=== PATIENT | female | born 1950 | race Hispanic/Latino ===

== ENCOUNTER 2017-06-16 14:35 | Inpatient (IN) | payer MEDICARE, BC ==
[2017-06-16 14:36] VITALS: BMI 56.5
--- NOTE | 2017-06-16 15:52 | RAD ---
HISTORY: SOB COMPARISON: 04/28/2013 FINDINGS: LUNGS: No active pulmonary disease. PLEURA: No significant pleural effusion identified, no pneumothorax apparent. CARDIOVASCULAR: Mild cardiomegaly and mild vascular congestion OSSEOUS STRUCTURES: No significant abnormalities. VISUALIZED UPPER ABDOMEN: Normal. OTHER FINDINGS: None. IMPRESSION: Mild cardiomegaly and mild vascular congestion
--- NOTE | 2017-06-16 15:56 | ED PDOC ---
Arrival/HPI - General Chief Complaint: Abdominal Pain Time Seen by Provider: 06/16/17 14:41 Historian: Patient - History of Present Illness Narrative History of Present Illness (Text): 06/16/17 15:40 67yo female with PMHx of Atrial fibrillation, lymphedema/wound who was referred to ED by Dr. Robledo for worsening RAWLS and abdominal distention for few weeks now. Patient also report b/l leg swelling. States she vomited yesterday, but was able to tolerate food today. she denies abdominal pain, nausea, vomiting, diarrhea, constipation, cough, fever, diaphoresis, sick contact, travel, any other complaint. Past Medical History - Provider Review Nursing Documentation Reviewed: Yes - Infectious Disease Hx of Infectious Diseases: None - Cardiac Hx Cardiac Disorders: Yes Hx Atrial Fibrillation: Yes - Pulmonary Hx Respiratory Disorders: Yes Hx Chronic Obstructive Pulmonary Disease (COPD): Yes - Neurological Hx Neurological Disorder: No - HEENT Hx HEENT Disorder: No - Renal Hx Renal Disorder: No - Endocrine/Metabolic Hx Endocrine Disorders: No - Hematological/Oncological Hx Blood Disorders: Yes Hx Cancer: Yes (breast) - Integumentary Hx Dermatological Disorder: No - Musculoskeletal/Rheumatological Hx Musculoskeletal Disorders: Yes Hx Arthritis: Yes - Gastrointestinal Hx Gastrointestinal Disorders: No - Genitourinary/Gynecological Hx Genitourinary Disorders: No - Psychiatric Hx Psychophysiologic Disorder: No Hx Substance Use: No - Surgical History Hx Joint Replacement: Yes (left knee 2007. R knee 2007) Other/Comment: left breast lumpectomy - Anesthesia Hx Anesthesia: Yes Hx Anesthesia Reactions: No Hx Malignant Hyperthermia: No - Suicidal Assessment Feels Threatened In Home Enviroment: No Family/Social History - Physician Review Nursing Documentation Reviewed: Yes Family/Social History: Unknown Family HX Smoking Status: Never Smoked Hx Alcohol Use: No Hx Substance Use: No Hx Substance Use Treatment: No Allergies/Home Meds Allergies/Adverse Reactions: Allergies moxifloxacin [From Avelox] Allergy (Verified 01/14/17 23:21) ITCHING Home Medications: Home Meds Medication Instructions Recorded Confirmed Letrozole [Femara] 2.5 mg PO DAILY 01/15/17 06/16/17 Albuterol Sulfate [Proair Hfa] 2 puff NEB Q4 06/16/17 06/16/17 Apixaban [Eliquis] 2.5 mg PO BID 06/16/17 06/16/17 Review of Systems - Physician Review All systems were reviewed & negative as marked: Yes - Review of Systems Constitutional: Normal Eyes: Normal ENT: Normal Respiratory: SOB. absent: Cough, Sputum, Wheezing Cardiovascular: Normal Gastrointestinal: Other (Distention). absent: Abdominal Pain, Constipation, Diarrhea, Nausea, Vomiting Genitourinary Female: Normal Musculoskeletal: Normal Skin: Normal Neurological: Normal Endocrine: Normal Hemo/Lymphatic: Normal Psychiatric: Normal Physical Exam Vital Signs Reviewed: Yes Vital Signs Temp Pulse Resp BP Pulse Ox 06/16/17 21:19 97.8 F 85 18 122/78 98 06/16/17 19:36 121/54 L 06/16/17 17:43 98 H 18 120/72 98 06/16/17 17:31 97 H 18 121/78 98 06/16/17 14:46 97.8 F 115 H 20 118/74 93 L Temperature: Afebrile Blood Pressure: Normal Pulse: Tachycardic Respiratory Rate: Normal Appearance: Positive for: Well-Appearing, Non-Toxic, Comfortable, Other (Morbid obesity) Pain Distress: None Mental Status: Positive for: Alert and Oriented X 3 - Systems Exam Head: Present: Atraumatic, Normocephalic Pupils: Present: PERRL Extroacular Muscles: Present: EOMI Conjunctiva: Present: Normal Mouth: Present: Moist Mucous Membranes Neck: Present: Normal Range of Motion Respiratory/Chest: Present: Clear to Auscultation, Good Air Exchange. No: Respiratory Distress, Accessory Muscle Use, Wheezes, Decreased Breath Sounds, Rales, Retracting, Rhonchi, Tachypneic Cardiovascular: Present: Regular Rate and Rhythm, Normal S1, S2. No: Murmurs Abdomen: Present: Distention, Normal Bowel Sounds, Other (soft). No: Tenderness , Peritoneal Signs, Rebound, Guarding, McBurney's Point Tender, Rovsing's Sign Present Back: Present: Normal Inspection Upper Extremity: Present: Normal Inspection. No: Cyanosis, Edema Lower Extremity: Present: Normal Inspection, Edema (4+ bipedal edema), Erythema (B/L thigh). No: Tenderness Neurological: Present: GCS=15, CN II-XII Intact, Speech Normal Skin: Present: Warm, Dry, Normal Color. No: Rashes Psychiatric: Present: Alert, Oriented x 3, Normal Insight, Normal Concentration Medical Decision Making ED Course and Treatment: 06/17/17 01:08 PT in ED for stated history. she was in no distress in ED. Hemodynamically stable in ED. Lab was noted with elevated BNP Lasix ordered Abdominal/Pelvis CT IMPRESSION: Inflammatory changes limited to the ascending colon. Differential considerations include diverticulitis/colitis. Severe diverticular disease throughout the colon. EKG A fib with RVR @111bpm CXR <Mild pulm /vascular congestion Rocephin and Flagyl ordered for intra abdominal infection - Diverticulitis Case was DW Dr. Robledo and pt was admitted to his service. - Lab Interpretations Lab Results: 06/16/17 16:17 06/16/17 16:17 Lab Results 06/16/17 16:17: Sodium 143, Chloride 106, Potassium 4.2, Carbon Dioxide 28, Anion Gap 13, BUN 7, Creatinine 0.6 L, Est GFR ( Amer) > 60, Est GFR (Non -Af Amer) > 60, Random Glucose 103, Calcium 9.8, Total Bilirubin 0.8, AST 28, ALT 27, Alkaline Phosphatase 80, Lactate Dehydrogenase 433, Total Creatine Kinase 31 L, Troponin I < 0.01, NT-Pro-B Natriuret Pep 1410 H, Total Protein 6.8 , Albumin 3.7, Globulin 3.0, Albumin/Globulin Ratio 1.2 06/16/17 16:17: pO2 35, VBG pH 7.33, VBG pCO2 56.0, VBG HCO3 29.5 H, VBG Total CO2 31.2 H, VBG O2 Sat (Calc) 70.5 H, VBG Base Excess 2.3 H, VBG Potassium 4.1, Sodium 141.0, Chloride 106.0, Glucose 106 H, Lactate 1.0, FiO2 21.0, Venous Blood Potassium 4.1 06/16/17 16:17: PT 12.5, INR 1.09 H, APTT 33.1 06/16/17 16:17: WBC 4.5, RBC 4.52, Hgb 13.2, Hct 41.1, MCV 90.9, MCH 29.2, MCHC 32.1, RDW 14.2, Plt Count 194, MPV 9.2, Gran % 70.0 H, Lymph % (Auto) 15.2 L, [place] % (Auto) 10.5 H, Eos % (Auto) 3.6, Baso % (Auto) 0.7, Gran # 3.13, Lymph # (Auto) 0.7 L, [place] # (Auto) 0.5, Eos # (Auto) 0.2, Baso # (Auto) 0.03 06/16/17 16:05: Urine Color Yellow, Urine Appearance Clear, Urine pH 7.0, Ur Specific [place] 1.020, Urine Protein Negative, Urine Glucose (UA) Negative, Urine Ketones Negative, Urine Blood Moderate H, Urine Nitrate Negative, Urine Bilirubin Negative, Urine Urobilinogen 0.2, Ur Leukocyte Esterase Negative, Urine RBC 1 - 3, Urine WBC 0 - 2, Ur Epithelial Cells 1 - 3, Urine Bacteria Few - RAD Interpretation Radiology Orders: 06/16/17 15:06 CHEST PORTABLE [RAD] Stat 06/16/17 15:59 ABD & PELVIS IV CONTRAST ONLY [CT] Stat - Medication Orders Current Medication Orders: Albuterol Sulfate (Albuterol 0.083% Inhal Adelina (2.5 Mg/3 Ml) Ud) 2.5 mg IH [id number] PAULO Apixaban (Eliquis) 2.5 mg PO BID PAULO PRN Reason: Protocol Carvedilol (Coreg) 25 mg PO BID [facility] Digoxin (Digoxin) 0.125 mg PO DAILY@1800 [facility] Metronidazole (Flagyl) 500 mg in 100 mls @ 100 mls/hr IVPB Q8 PAULO PRN Reason: Protocol Last Admin: 06/16/17 23:00 Dose: 100 mls/hr eMAR Start Stop Document 06/16/17 23:00 OCS (Rec: 06/16/17 23:00 [id number] Intravenous Solution Start Date 06/16/17 Start Time 23:00 Ceftriaxone Sodium (Rocephin 2 Gm Ivpb) 2 gm in 100 mls @ 100 mls/hr IVPB DAILY [facility] PRN Reason: Protocol Letrozole (Femara) 2.5 mg PO DAILY PAULO Discontinued Medications Furosemide (Lasix) 60 mg IVP STAT STA Stop: 06/16/17 18:34 Last Admin: 06/16/17 19:36 Dose: 60 mg MAR Blood Pressure Document 06/16/17 19:36 OCS (Rec: 06/16/17 19:36 OCS [id number]) Blood Pressure Blood Pressure (100/60-150/90) 121/54 IVP Administration Document 06/16/17 19:36 OCS (Rec: 06/16/17 19:36 OCS [id number]) Charges for Administration # of IVP Administrations 1 Metronidazole (Flagyl) 500 mg in 100 mls @ 100 mls/hr IVPB STAT STA PRN Reason: Protocol Stop: 06/16/17 19:32 Last Admin: 06/16/17 19:36 Dose: 100 mls/hr eMAR Start Stop Document 06/16/17 19:36 OCS (Rec: 06/16/17 19:36 [id number] Intravenous Solution Start Date 06/16/17 Start Time 19:36 End Date 06/16/17 End time 20:36 Total Infusion Time 60 Ceftriaxone Sodium (Rocephin 1 Gram Ivpb) 1 gm in 100 mls @ 100 mls/hr IVPB DAILY STA PRN Reason: Protocol Stop: 06/16/17 19:35 Last Admin: 06/16/17 20:56 Dose: 100 mls/hr eMAR Start Stop Document 06/16/17 20:56 OCS (Rec: 06/16/17 20:57 OCS [id number]) Intravenous Solution Start Date 06/16/17 Start Time 20:57 End Date 06/16/17 End time 21:57 Total Infusion Time 60 Disposition/Present on Arrival - Present on Arrival Any Indicators Present on Arrival: No History of DVT/PE: No History of Uncontrolled Diabetes: No Urinary Catheter: No History of Decub. Ulcer: No History Surgical Site Infection Following: None - Disposition Have Diagnosis and Disposition been Completed?: Yes Diagnosis: Acute exacerbation of CHF (congestive heart failure), Atrial fibrillation, Dyspnea, Diverticulitis, Cellulitis Disposition: HOSPITALIZED Disposition Time: 16:20 Patient Plan: Admission Condition: FAIR
[2017-06-16 16:21] LABS: URINE BILIRUBIN NEGATIVE (NEGATIVE); URINE BLOOD MODERATE (NEGATIVE); URINE GLUCOSE (UA) NEGATIVE (NEGATIVE); URINE LEUKOCYTE ESTERASE NEGATIVE Leu/uL (NEGATIVE); URINE PROTEIN NEGATIVE mg/dL (<30 mg/dL); URINE UROBILINOGEN 0.2 E.U./dL (<1 E.U./dL)
[2017-06-16 16:22] LABS: VENOUS BLOOD GAS BASE EXCESS 2.3 mmol/L (0.0-2.0); VENOUS BLOOD GAS PO2 35 mm/Hg (30-55); VENOUS BLOOD PH 7.33 (7.32-7.43)
[2017-06-16 16:22] LABS: URINE APPEARANCE CLEAR (CLEAR); URINE COLOR YELLOW (YELLOW)
[2017-06-16 16:25] LABS: BASO # 0.03 K/mm3 (0.0-2.0); BASO % 0.7 % (0.0-3.0); EOS # 0.2 (0.0-0.7); EOS % 3.6 % (1.5-5.0); GRAN # 3.13 (1.4-6.5); HEMOGLOBIN 13.2 g/dL (12.0-16.0); LYMPH # 0.7 (1.2-3.4); LYMPH % 15.2 % (22.0-35.0); MEAN CELL VOLUME 90.9 fl (80.0-105.0); MEAN CORPUSCULAR HEMOGLOBIN 29.2 pg (25.0-35.0); MEAN CORPUSCULAR HGB CONC 32.1 g/dl (31.0-37.0); MEAN PLATELET VOLUME 9.2 fl (7.0-11.0); MONO # 0.5 (0.1-0.6); MONO % 10.5 % (1.0-6.0); RBC 4.52 10^6/uL (3.5-6.1); RED CELL DISTRIBUTION WIDTH 14.2 % (11.5-14.5); WHITE BLOOD COUNT 4.5 10^3/ul (4.5-11.0)
[2017-06-16 16:34] LABS: URINE BACTERIA FEW (NEG); URINE WBC 0 - 2 /hpf (0-6)
[2017-06-16 16:38] LABS: INR 1.09 (0.93-1.08); PARTIAL THROMBOPLASTIN TIME 33.1 Seconds (25.1-36.5); PROTHROMBIN TIME 12.5 SECONDS (9.4-12.5)
[2017-06-16 16:39] LABS: ALB/GLOB RATIO 1.2 (1.1-1.8); ALBUMIN 3.7 g/dL (3.0-4.8); ALT/SGPT 27 U/L (7-56); AST/SGOT 28 U/L (14-36); BLOOD UREA NITROGEN 7 mg/dL (7-21); CALCIUM 9.8 mg/dL (8.4-10.5); GFR AFRICAN-AMERICAN > 60; GFR NON-AFRICAN AMERICAN > 60
[2017-06-16] MEDS ORDERED: Iohexol 350 MG/100 ML VIAL ONE (16:43)
[2017-06-16 16:49] LABS: B-TYPE NATRIURETIC PEPTIDE 1410 pg/mL (0-450); TROPONIN I < 0.01 ng/mL
--- NOTE | 2017-06-16 18:24 | CT ---
PROCEDURE: CT Abdomen and Pelvis with contrast HISTORY: Abdominal distension. Relevant surgical history: Prior lap band procedure. Prior cholecystectomy. COMPARISON: None. TECHNIQUE: Contrast dose: 100 cc Omnipaque 350 Radiation dose: Total exam DLP = 1492.55 mGy-cm. This CT exam was performed using one or more of the following dose reduction techniques: Automated exposure control, adjustment of the mA and/or kV according to patient size, and/or use of iterative reconstruction technique. FINDINGS: LOWER THORAX: Unremarkable. LIVER: Hepatic steatosis. No focal masses. No intrahepatic bile duct dilatation or perihepatic ascites. GALLBLADDER AND BILE DUCTS: Status post cholecystectomy. No abnormality is seen in the gallbladder fossa. PANCREAS: Unremarkable. No gross lesion or ductal dilatation. SPLEEN: Unremarkable. ADRENALS: Unremarkable. No mass. KIDNEYS AND URETERS: Unremarkable. No hydronephrosis. No solid mass. VASCULATURE: Unremarkable. No aortic aneurysm. BOWEL: Inflammatory changes affecting a segment of the ascending colon with streaking of the pericolonic fat. This appears in an area of right-sided diverticular disease suggesting acute diverticulitis. Alternately colitis can assume this segmental appearance. No loculated air, free air or drainable collection. Severe diverticular disease noted throughout the remainder of the colon. Gastric lap band Paraphernalia identified in this appears be in satisfactory position. No underlying gastric abnormalities. APPENDIX: No abnormalities to suggest acute appendicitis. No right lower quadrant inflammatory processes identified. PERITONEUM: Unremarkable. No free fluid. No free air. LYMPH NODES: Unremarkable. No enlarged lymph nodes. BLADDER: Unremarkable. REPRODUCTIVE: Prior hysterectomy. BONES: No acute fracture. OTHER FINDINGS: None. IMPRESSION: Inflammatory changes limited to the ascending colon. Differential considerations include diverticulitis/colitis. Severe diverticular disease throughout the colon.
[2017-06-16] MEDS ORDERED: metroNIDAZOLE IV 500 mg/100 ml 500 MG/100 ML BAG IVPB STA (18:33)
[2017-06-16] MEDS ORDERED: cefTRIAXone 1 gm 1 GM/100 ML BAG IVPB STA (18:36)
[2017-06-16] MEDS: metroNIDAZOLE IV 500 mg/100 ml 500 MG/100 ML BAG IVPB SCH (23:00)
[2017-06-16] MEDS ORDERED: Albuterol 0.083% Inhal Sol (2.5 mg/3 mL) UD IH SCH (23:30)
--- NOTE | 2017-06-16 23:44 | CARD ---
APPROVED REPORT EKG Measurement Heart [id number] <Conclusion> Atrial fibrillation with rapid ventricular response with premature ventricular or aberrantly conducted complexes Low voltage QRS Cannot rule out Anterior infarct, age undetermined Abnormal ECG
[2017-06-17] MEDS: metroNIDAZOLE IV 500 mg/100 ml 500 MG/100 ML BAG IVPB SCH ×3 (05:58→21:44)
[2017-06-17] MEDS: Albuterol 0.083% Inhal Sol (2.5 mg/3 mL) UD IH SCH ×4 (07:38→21:00)
[2017-06-17] MEDS: cefTRIAXone 2 GM IN NS 2 GM/100 ML BAG IVPB SCH (11:33)
--- NOTE | 2017-06-17 16:27 | CON ---
DATE: 06/17/2017 GASTROENTEROLOGY CONSULTATION REQUESTING PHYSICIAN: Nilo Robledo MD REASON FOR CONSULTATION: I have been asked to see this 67-year-old female with multiple comorbidities including morbid obesity, COPD, lymphedema of the lower extremities, who was admitted to the hospital with increasing shortness of breath as well as frequent abdominal distention. She denies any abdominal pain but does admit to bloating. She denies constipation, rectal bleeding, nausea, vomiting. CT scan of the abdomen and pelvis revealed extensive diverticulosis throughout the colon as well as some inflammatory changes with mural thickening and streaking of the pericolonic fat of the ascending colon. There is also right-sided diverticulosis. The patient has longstanding wounds of her lower extremities associated with lymphedema. She also has a history of left breast cancer. She last had a colonoscopy approximately 6 years ago. The patient had one episode of vomiting the day prior to admission but has not had any recurrent nausea, vomiting since then. PAST MEDICAL HISTORY: Notable for atrial fibrillation for which she is on Eliquis, COPD, morbid obesity, breast cancer, degenerative joint disease. PAST SURGICAL HISTORY: Notable for left lumpectomy, bilateral knee replacements, laparoscopic band placement of her stomach for morbid obesity. SOCIAL HISTORY: She denies cigarette smoking or alcohol use. FAMILY HISTORY: Noncontributory. REVIEW OF SYSTEMS: A 14-point review of systems is notable for shortness of breath, abdominal bloating and distention, and one episode of vomiting. MEDICATIONS: At home, include albuterol inhaler, carvedilol, digoxin 0.125 mg daily, Eliquis 2.5 mg b.i.d., letrozole 2.5 mg daily, and diltiazem 120 mg once a day. PHYSICAL EXAMINATION: GENERAL: Morbidly obese female lying in bed, in no acute distress. VITAL SIGNS: Reveal temperature of 97.8, blood pressure 110/70, heart rate 97, BMI is 54.2. HEENT: Reveals sclerae to be white. Conjunctivae pink. NECK: Supple. CHEST: Reveals scattered rhonchi. HEART: Reveals an irregularly irregular rate. There is no murmur. ABDOMEN: Obese, soft, nontender. No mass. EXTREMITIES: Show chronic stasis changes of the lower extremities with 1+ pedal edema. LABORATORY DATA: Reveals white blood cell count 4.5, hemoglobin 13.2. Chemistries reveal normal electrolytes. BNP of 1410. Chest x-ray shows cardiomegaly with vascular congestion. CT scan of the abdomen and pelvis shows diverticulosis throughout the colon including the right side with some mild mural thickening and pericolonic fat streaking. IMPRESSION: 1. Probable diverticulitis of the ascending colon without any abscess or fluid collection. 2. Morbid obesity. 3. Atrial fibrillation. 4. Lymphedema of the lower extremities. RECOMMENDATIONS: 1. Continue Rocephin 2 g IV daily as well as Flagyl 500 mg IV every 8 hours. 2. I will start the patient on a low residue diet. If the patient develops any abdominal pain, will need to downgrade this to liquids. Lefty Warren MD
[2017-06-17] MEDS ORDERED: Digoxin 125 mcg (0.125 mg) Tab PO SCH (18:00)
[2017-06-17 18:26] VITALS: PULSE 90
[2017-06-18] MEDS: Albuterol 0.083% Inhal Sol (2.5 mg/3 mL) UD IH SCH ×5 (00:30→15:34)
--- NOTE | 2017-06-18 02:30 | HP ---
DATE OF EXAM: HISTORY OF PRESENT ILLNESS: The patient is a 67-year-old morbidly obese white female with a history of chronic bronchitis, mild hypertension, chronic lymphedema with cellulitis of both lower extremities. The patient developed increasing abdominal distention and pain; increasing swelling in both lower extremities. The patient had been [facility] Recently was seen in my office, complaining of same above results. Patient went to the ER, had a CAT scan done, which showed right-sided diverticulitis and some pancolitis, otherwise unremarkable. The patient was started on IV antibiotics, seen in consultation by Dr. Warren. PHYSICAL EXAMINATION: GENERAL: Shows a well-developed, but obese white female, in mild distress. HEENT: Essentially within normal limits. HEART: Regular sinus rhythm. No S3 or murmurs. ABDOMEN: Distended. Hypoactive bowel sounds, tenderness in all mitchell. There is mild rebound, but no guarding and there is no masses palpable. There is also a palpable port for a laparoscopic gastrectomy. EXTREMITIES: Patient also has chronic swelling and edema and open ulceration of her left lower extremity and right lower extremity. NEUROLOGIC: Grossly intact. IMPRESSION: Acute abdomen with diverticulitis, chronic wound ulcerations of the lower extremities, morbid obesity and chronic bronchitis. Nilo Robledo MD
[2017-06-18] MEDS: metroNIDAZOLE IV 500 mg/100 ml 500 MG/100 ML BAG IVPB SCH ×2 (05:29→15:14)
[2017-06-18 06:26] VITALS: RESP 22; TEMP 98.2; O2SAT 95
[2017-06-18 07:25] LABS: BASO # 0.03 K/mm3 (0.0-2.0); BASO % 0.8 % (0.0-3.0); EOS # 0.2 (0.0-0.7); EOS % 5.4 % (1.5-5.0); GRAN # 2.43 (1.4-6.5); GRAN % 65.1 % (50.0-68.0); HEMOGLOBIN 13.4 g/dL (12.0-16.0); LYMPH # 0.6 (1.2-3.4); LYMPH % 17.2 % (22.0-35.0); MEAN CELL VOLUME 89.6 fl (80.0-105.0); MEAN CORPUSCULAR HEMOGLOBIN 29.1 pg (25.0-35.0); MEAN CORPUSCULAR HGB CONC 32.4 g/dl (31.0-37.0); MEAN PLATELET VOLUME 8.9 fl (7.0-11.0); MONO # 0.4 (0.1-0.6); MONO % 11.5 % (1.0-6.0); RBC 4.61 10^6/uL (3.5-6.1); RED CELL DISTRIBUTION WIDTH 14.2 % (11.5-14.5); WHITE BLOOD COUNT 3.7 10^3/ul (4.5-11.0)
[2017-06-18 07:37] LABS: ALB/GLOB RATIO 1.2 (1.1-1.8); ALBUMIN 3.7 g/dL (3.0-4.8); ALT/SGPT 28 U/L (7-56); AST/SGOT 31 U/L (14-36); BLOOD UREA NITROGEN 7 mg/dL (7-21); CALCIUM 9.7 mg/dL (8.4-10.5); GFR AFRICAN-AMERICAN > 60; GFR NON-AFRICAN AMERICAN > 60
[2017-06-18 07:49] LABS: T4 11.8 ug/dL (5.5-11.0)
--- NOTE | 2017-06-18 08:29 | PN ---
DATE: 06/18/2017 SUBJECTIVE: The patient is lying in bed comfortable. She denies any shortness of breath, chest pain, cough or abdominal pain. She did have some mild nausea yesterday without any vomiting. PHYSICAL EXAMINATION: VITAL SIGNS: Reveal temperature of 98.2, blood pressure 106/92, heart rate of 65. HEENT: Reveals sclerae to be white. Conjunctivae pink. NECK: Supple. CHEST: Reveal lungs to be clear. HEART: Reveals a regular rate and rhythm. ABDOMEN: Soft, nontender. No mass. EXTREMITIES: Reveal chronic stasis changes with lymphedema. LABORATORY DATA: Reveals white blood cell count 3.7, hemoglobin 13.4. Chemistries reveal normal electrolytes, phosphorus of 4.7. IMPRESSION: 1. Exacerbation of chronic obstructive pulmonary disease with congestive heart failure. 2. Atrial fibrillation. 3. Ascending colon diverticulitis. RECOMMENDATIONS: The patient is stable from GI and can be discharged home on p.o. Ceftin as she is allergic to quinolones and Flagyl 500 mg three times a day for 7 days. I have instructed the patient to stay on a low residue diet for the next 4 weeks. She can follow up with me in the office as an outpatient. Lefty Warren MD
[2017-06-18 08:34] VITALS: BP 106/62
[2017-06-18] MEDS: cefTRIAXone 2 GM IN NS 2 GM/100 ML BAG IVPB SCH (10:14)
[2017-06-18 11:07] VITALS: PULSE 110
--- NOTE | 2017-06-18 15:43 | CP.PCM.CON ---
<Karishma Osorio - Last Filed: 06/18/17 15:51> History of Present Illness - History of Present Illness History of Present Illness: 67 y/o female known to Dr. Lovett's wound care service seen at bedside with Dr. Lovett for left lateral leg ulceration with left lower extremity edema. Pt states she was admitted to the hospital for her CHF. States she will likely be discharged later today but her dressing has not been changed since Friday. Pt normally changes her own dressings at home daily but has been in the hospital since Friday evening. Denies any pain to the left leg wound. Dressings remain clean dry and intact to left leg. Denies any F/C/N/V/CP/SOB Review of Systems - Review of Systems All systems: reviewed and no additional remarkable complaints except (per HPI) Past Patient History - Infectious Disease Hx of Infectious Diseases: None - Past Medical History & Family History Past Medical History?: Yes - Past Social History Smoking Status: Never Smoked - CARDIAC Hx Cardiac Disorders: Yes Hx Atrial Fibrillation: Yes - PULMONARY Hx Respiratory Disorders: Yes Hx Chronic Obstructive Pulmonary Disease (COPD): Yes - NEUROLOGICAL Hx Neurological Disorder: No - HEENT Hx HEENT Problems: No - RENAL Hx Chronic Kidney Disease: No - ENDOCRINE/METABOLIC Hx Endocrine Disorders: No - HEMATOLOGICAL/ONCOLOGICAL Hx Blood Disorders: Yes Hx Cancer: Yes (breast) - INTEGUMENTARY Hx Dermatological Problems: No - MUSCULOSKELETAL/RHEUMATOLOGICAL Hx Musculoskeletal Disorders: Yes Hx Arthritis: Yes - GASTROINTESTINAL Hx Gastrointestinal Disorders: No - GENITOURINARY/GYNECOLOGICAL Hx Genitourinary Disorders: No - PSYCHIATRIC Hx Psychophysiologic Disorder: No Hx Substance Use: No - SURGICAL HISTORY Hx Joint Replacement: Yes (left knee 2006. R knee 2007) Other/Comment: left breast lumpectomy - ANESTHESIA Hx Anesthesia: Yes Hx Anesthesia Reactions: No Hx Malignant Hyperthermia: No Meds Home Medications: Home Medication List Medication Instructions Recorded Confirmed Type Amoxicillin/Clavulanate [Augmentin 875 mg PO Q12 #10 tab 06/18/17 Rx 875 MG-125 MG Tab] metroNIDAZOLE [Flagyl] 500 mg PO Q8H #24 tab 06/18/17 Rx Allergies/Adverse Reactions: Allergies Allergy/AdvReac Type Severity Reaction Status Date / Time moxifloxacin [From Avelox] Allergy ITCHING Verified 01/14/17 23:21 - Medications Medications: Current Medications Albuterol Sulfate (Albuterol 0.083% Inhal Adelina (2.5 Mg/3 Ml) Ud) 2.5 mg IH [id number] [facility] Last Admin: 06/18/17 15:34 Dose: 2.5 mg Apixaban (Eliquis) 2.5 mg PO BID [facility] PRN Reason: Protocol Last Admin: 06/18/17 10:14 Dose: 2.5 mg Carvedilol (Coreg) 25 mg PO BID [facility] Last Admin: 06/18/17 10:14 Dose: 25 mg Digoxin (Digoxin) 0.125 mg PO DAILY@1800 [facility] Last Admin: 06/17/17 18:24 Dose: 0.125 mg Metronidazole (Flagyl) 500 mg in 100 mls @ 100 mls/hr IVPB Q8 [facility] PRN Reason: Protocol Last Admin: 06/18/17 15:14 Dose: 100 mls/hr Ceftriaxone Sodium (Rocephin 2 Gm Ivpb) 2 gm in 100 mls @ 100 mls/hr IVPB DAILY [facility] PRN Reason: Protocol Last Admin: 06/18/17 10:14 Dose: 100 mls/hr Letrozole (Femara) 2.5 mg PO DAILY [facility] Last Admin: 06/18/17 10:15 Dose: Not Given Physical Exam - Constitutional Appears: Well, Non-toxic, No Acute Distress - Extremities Exam Additional comments: Left lower extremity focused exam: Vasc: DP/PT pulses palpable 2/4. Temperature gradient warm to cool. Non-pitting edema noted from tibial tuberosity extending to digits. CFT < 3 sec to all digits Derm: Ulceration noted to lateral lower leg measuring approx 2cm x 1.7cm x 0.2cm with fibrogranular wound base and mildly hyperkeratotic wound borders. No fluctuance, no malodor, no drainage, no tunneling or undermining Neuro: Protective sensation grossly intact Ortho: Mild tenderness to palpation of lateral leg ulceration - Neurological Exam Neurological exam: Alert, Oriented x3 - Psychiatric Exam Psychiatric exam: Normal Affect, Normal Mood Results - Vital Signs Recent Vital Signs: Last Vital Signs Temp 98.2 F 06/18/17 06:00 Pulse 110 H 06/18/17 10:00 Resp 22 06/18/17 06:00 BP 106/62 06/18/17 06:00 Pulse Ox 95 06/18/17 06:00 - Labs Result Diagrams: 06/18/17 07:00 06/18/17 07:00 Labs: Laboratory Results - last 24 hr 06/18/17 06/18/17 06/18/17 07:00 07:00 07:00 WBC 3.7 L RBC 4.61 Hgb 13.4 Hct 41.3 MCV 89.6 MCH 29.1 MCHC 32.4 RDW 14.2 Plt Count 198 MPV 8.9 Gran % 65.1 Lymph % (Auto) 17.2 L Br[place] % (Auto) 11.5 H Eos % (Auto) 5.4 H Baso % (Auto) 0.8 Gran # 2.43 Lymph # (Auto) 0.6 L [place] # (Auto) 0.4 Eos # (Auto) 0.2 Baso # (Auto) 0.03 Sodium 141 Potassium 3.9 Chloride 105 Carbon Dioxide 25 Anion Gap 15 BUN 7 Creatinine 0.6 L Est GFR ( Amer) > 60 Est GFR (Non-Af Amer) > 60 Random Glucose 96 Calcium 9.7 Phosphorus 4.7 H Magnesium 1.9 Total Bilirubin 0.9 AST 31 ALT 28 Alkaline Phosphatase 75 Total Protein 6.9 Albumin 3.7 Globulin 3.1 Albumin/Globulin Ratio 1.2 Thyroxine (T4) 11.8 H TSH 3rd Generation 2.48 Assessment & Plan - Assessment and Plan (Free Text) Assessment: 67 y/o female with chronic left lateral lower leg ulceration secondary to venous stasis Plan: Pt seen and evaluated with attending Dr. Lovett Labs and vitals reviewed- afebrile, WBC 3.7 Wound cleansed with saline and dressed with Acticoat wound dressing Wound does not appear clinically infected at this time No plans for surgical intervention per podiatry Compression bandages reapplied to left leg Podiatry will continue to follow patient Thank you for this consult <Sarah Beth Lovett - Last Filed: 06/20/17 15:39> Results - Vital Signs Recent Vital Signs: Last Vital Signs Temp 98.2 F 06/18/17 06:00 Pulse 110 H 06/18/17 10:00 Resp 22 06/18/17 06:00 BP 106/62 06/18/17 06:00 Pulse Ox 95 06/18/17 06:00 - Labs Result Diagrams: 06/18/17 07:00 06/18/17 07:00 Attending/Attestation - Attestation I have personally seen and examined this patient.: Yes I have fully participated in the care of the patient.: Yes I have reviewed all pertinent clinical information: Yes Notes (Text): 06/20/17 15:38 I have seen and evaluated the patient reviewed the chart and formulated the plan of care; agree with resident note
--- NOTE | 2017-06-19 08:26 | DS ---
HOSPITAL COURSE: This 67-year-old white female admitted to the hospital with abdominal pain, was found to have diverticulitis, seen in consultation by Dr. Warren, treated with Rocephin and metronidazole. The patient did well. Initially was able to be started on increase her diet and was able to be discharged home in improved condition on 10-day course of p.o. antibiotics, low-residue diet for two weeks followed by high-residue diet thereafter. The patient was discharged home in improved condition. FINAL DISCHARGE DIAGNOSES: Acute diverticulitis, history of morbid obesity, history of peripheral edema with ulcerations, and history of bronchitis. Nilo Robledo MD
--- NOTE | 2017-06-20 14:19 | PQF CHF ---
06/20/17 Dr. Robledo, Acute CHF is documented in ED notes. Please specify type of CHF, as listed below. Thank you. Clarification of your documentation is requested to better reflect the severity of illness and intensity of treatment of your patient. Indicators present [] Diagnosis of CHF and/or history of CHF [] BNP > 200 [] Imaging Finding of Pulmonary Edema /Pleural Effusions [] Fluid/Volume Overload [] Pitting edema [] Ejection Fraction < 40% (Indicative of Systolic Heart Failure) [] Ejection Fraction > 40% (Indicative of Diastolic Heart Failure) [] Dyspnea / Orthopenea / Paroxysmal Nocturnal Dyspnea [] Other: Location in the medical record that reflects the above clinical findings: [] Treatment Provided: [] PHYSICIAN'S RESPONSE Based on your medical judgment of the clinical indicators outlined above, are you treating this patient for a known or suspected: [] Acute CHF [] Systolic [] Diastolic [] Combined [x] Chronic CHF [] Systolic [] Diastolic x[] Combined [] Acute on Chronic CHF []Systolic [] Diastolic [] Combined [] CHF due hypertension [] Acute systolic []Chronic systolic [] Acute/ chronic systolic [] Other, please indicate: [] [x] If Unable to Determine, please check the box, sign and date. Present On Admission (POA) Indicator: [x] Present at the time of admission [] Not present at the time of admission [] Clinically Undetermined In responding to this query, please exercise your independent professional judgment. The fact that a question is asked does not imply that any particular answer is desired or expected. Thank you for your clarification on this documentation. 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
== END 2017-06-18 16:39 | disposition home or self-care (01) | DRG 392 ==
LOC: ED 14:35 → ERH 18:31 → 3RSO 23:05
PROVIDERS: ADMIT Internal Medicine; ATTEND Internal Medicine
DX: K57.32 Diverticulitis of large intestine without perforation or abscess without bleeding (principal); J44.1 Chronic obstructive pulmonary disease with (acute) exacerbation; I50.42 Chronic combined systolic (congestive) and diastolic (congestive) heart failure; L97.909 Non-pressure chronic ulcer of unspecified part of unspecified lower leg with unspecified severity; Z68.43 Body mass index [BMI] 50.0-59.9, adult; L03.116 Cellulitis of left lower limb; L03.115 Cellulitis of right lower limb; E66.01 Morbid (severe) obesity due to excess calories; I48.91 Unspecified atrial fibrillation; I11.0 Hypertensive heart disease with heart failure; I87.8 Other specified disorders of veins; I89.0 Lymphedema, not elsewhere classified; Z79.01 Long term (current) use of anticoagulants; Z85.3 Personal history of malignant neoplasm of breast; Z96.653 Presence of artificial knee joint, bilateral; M19.90 Unspecified osteoarthritis, unspecified site; Z88.1 Allergy status to other antibiotic agents; R40.2412 Glasgow coma scale score 13-15, at arrival to emergency department